=== PATIENT | male | born 1975 | race Caucasian/White ===

== ENCOUNTER 2023-05-01 01:07 | Emergency (ER) | payer OTHER, SELFPAY ==
[2023-05-01 01:12] VITALS: BP 183/125; PULSE 93; RESP 18; TEMP 36.6; O2SAT 94; BMI 34.7
--- NOTE | 2023-05-01 01:24 | XRR_ITS ---
PROCEDURE INFORMATION: Exam: XR Right Ankle Exam date and time: 05/01/2023 1:26 AM Age: 47 years old Clinical indication: Swelling or effusion of joint; Right; Patient HX: C/O RT ankle pain and swelling with multiple small bruises to medial side. Patient unsure as to why he has bruises. ; Additional info: Pain/swelling TECHNIQUE: Imaging protocol: Radiologic exam of the right ankle. Views: 3 or more views. COMPARISON: No relevant prior studies available. FINDINGS: Bones/joints: Normal. Soft tissues: Normal. XR/XR ankle RT min 3V* [id number] IMPRESSION: No acute findings.
--- NOTE | 2023-05-01 01:24 | XRR_ITS ---
PROCEDURE INFORMATION: Exam: XR Right Knee Exam date and time: 05/01/2023 1:26 AM Age: 47 years old Clinical indication: Right; Patient HX: Patient C/O RT knee pain with multiple small bruises to medial side. Patient states he is not sure why he is bruising. TECHNIQUE: Imaging protocol: Radiologic exam of the right knee. Views: 3 views. COMPARISON: No relevant prior studies available. FINDINGS: Bones/joints: Normal. Soft tissues: Normal. XR/XR knee RT 3V* [id number] IMPRESSION: No acute osseous findings.
--- NOTE | 2023-05-01 01:52 | USR_ITS ---
PROCEDURE INFORMATION: Exam: US Duplex Right Lower Extremity Veins, Limited Exam date and time: 05/01/2023 2:35 AM Age: 47 years old Clinical indication: Pain; Edema, localized; Lower extremity, right; Leg, lower; Additional info: Rle edema pain TECHNIQUE: Imaging protocol: Real-time duplex ultrasound of the right extremity with 2-D yeager scale, color Doppler flow and spectral waveform analysis including responses to compression and other maneuvers (when performed) with image documentation. Limited exam was focused on the right lower extremity veins. COMPARISON: CR (LOW EXM, ) 05/01/2023 1:26 AM FINDINGS: Right deep veins: Unremarkable. The common femoral, femoral, proximal profunda femoral and popliteal veins are patent without thrombus. Normal Doppler waveforms. Normal compressibility and/or augmentation response. Superficial veins: Unremarkable. Saphenofemoral junction is patent without thrombus. Soft tissues: Unremarkable. US/[place] [id number] IMPRESSION: No evidence of deep vein thrombosis.
[2023-05-01 02:13] VITALS: BP 183/125; PULSE 92; RESP 16; O2SAT 93
--- NOTE | 2023-05-01 02:16 | ED_ITS ---
HPI - Extremity Problem General: Chief complaint: Extremity Injury, Lower Stated complaint: Rt Knee Injury Time Seen by Provider: 05/01/23 01:48 History of Present Illness: 47-year-old male without significant medical history. He presents with right leg pain, mainly to the knee less so to the ankle following what he believes was an injury a couple of weeks ago. He was sitting and stood up and heard a pop. He has had some pain on and off to the knee since that time. This evening he noticed more swelling to his leg into his ankle. He complains of knee and ankle swelling. There is bruising which she had not noticed before to the medial knee, and medial ankle. Associated symptoms: Deny chest pain or fever(s) Review of Systems Const: Denies: fever(s) ENMT: Denies: throat pain Card: Denies: chest pain Resp: Denies: dyspnea GI: Denies: abdominal pain or vomiting Neuro: Denies: numbness in extremities Physical Exam Const: COMMON NORMALS: no acute distress GENERAL APPEARANCE: cooperative; not ill appearing and not frail appearing HENMT: COMMON NORMALS: normocephalic, atraumatic and Normal external nose present HEAD & SCALP: normocephalic and atraumatic FACE & SINUS: normal facial exam and face symmetric NOSE: Normal external nose present Eye: COMMON NORMALS: Equal, round and reactive pupils present and EOMs intact bilaterally PUPIL: Yes Equal, round and reactive pupils present Neck/C-Spine: GENERAL: Yes trachea midline Chest: CHEST: Yes Symmetrical chest wall rise Resp: COMMON NORMALS: normal respiratory effort, No retractions, No use of accessory muscles and clear to auscultation bilaterally AUSCULTATION: clear to auscultation bilaterally Cardio: COMMON NORMALS: regular rate and regular rhythm RATE: regular rate RHYTHM: regular rhythm GI: COMMON NORMALS: Normal to inspection, nondistended, normoactive bowel sounds present Extremity: COMMON NORMALS: no pedal edema NARRATIVE EXTREMITY EXAM: Examination of the right lower extremity reveals some prepatellar swelling. There is no definite knee effusion. No popliteal tenderness. There is tenderness over the anterior lateral joint line and patella. There is 1+ edema to the right lower extremity from the knee to the ankle. There is ecchymosis present in the medial joint line of the knee. There is also ecchymosis present in the medial joint line of the ankle along the medial malleolus. There is some soft tissue swelling of the ankle without deformity. Medial malleolar tenderness is present. Homans test is negative. Neuro: BRAD COMA SCALE: document GCS findings Brad coma scale eye opening: Spontaneous [place] coma scale verbal response: Orientated Brad coma scale motor response: Obey commands [place] coma scale total score: 15 SENSORY EXAM: Yes extremities (intact) Psych: COMMON NORMALS: speech normal SPEECH: Yes normal speech Skin: COMMON NORMALS: no rashes or lesions noted GENERAL SKIN EXAM: no rashes or lesions noted Course 2 Vital Signs: Vital signs: Vital Signs Temperature 97.9 F 05/01/23 01:12 Pulse Rate 92 05/01/23 02:13 Respiratory Rate 16 05/01/23 02:13 Blood Pressure 183/125 05/01/23 02:13 Pulse Oximetry 93 05/01/23 02:13 Oxygen Delivery Me thod Room Air 05/01/23 02:13 MDM - Extremity (Nontraumatic) Medical Decision Making 47-year-old hypertensive male. He presents with right leg pain, ecchymosis, and swelling with questionable knee injury. Ankle and knee x-rays are read as negative. He does have a thickened prepatellar space on knee x-ray, and some soft tissue swelling of his ankle and ankle x-ray. Ecchymosis to the skin is present. Lower extremity Doppler is pending. He has normal pulses distally. Venous ultrasound is negative. This may be a tennis leg (rupture of the plantaris tendon) causing the swelling and bruising. No significant knee or ankle joint effusions to indicate infectious/septic arthritis. He will be placed on anti-inflammatories, told to ice and compress the leg, outpatient follow-up. Lab Data Radiology Impressions Ankle X-Ray 05/01/23 01:24 IMPRESSION: No acute findings. Knee X-Ray 05/01/23 01:24 IMPRESSION: No acute osseous findings. Venous Duplex 05/01/23 01:52 IMPRESSION: No evidence of deep vein thrombosis. All radiology interpretation(s) finalized by discharge Discharge Plan Discharge Patient Disposition: Home Clinical Impression: Right leg injury Condition: Stable Prescriptions: New ketorolac 10 mg tablet 10 mg PO TID PRN (Reason: pain) Qty: 10 0RF Discharge Orders: Discharge ED (Routine); Ordered 05/01/23 Ordered By: Agapito Owen Patient Instructions: Leg Edema (ED), Leg Sprain (ED), Leg Pain (ED), Opioid Safety, Pain Management Activity Restrictions/Additional Instructions: No definite cause of your leg swelling and pain was found by x-ray or ultrasound. You do not have a blood clot. This may be a strain of the leg, particularly of the plantaris tendon known as a tennis leg. Ice, and elevate for swelling and pain. Medication as directed for swelling and pain. We will ask our case management team to make you an appointment with orthopedics. Ret urn for worsening symptoms despite treatment. Coding Level of Care Code ED Color Straining Bag Washer for Adelina Muñoz
[2023-05-01 03:14] VITALS: BP 163/112; PULSE 88; RESP 18; O2SAT 97
--- NOTE | 2023-05-01 07:12 | DCPLANNER ---
Referral was sent to ortho clinic on 05/01/23 at 0712 am. Clinic to contact patient
== END 2023-05-01 03:17 | disposition home or self-care (01) ==
PROVIDERS: Emergency Provider Emergency Medicine
DX: S80.11XA Contusion of right lower leg, initial encounter (principal); X58.XXXA Exposure to other specified factors, initial encounter
CPT/HCPCS: 73562; 73610; 93971; 99284

== ENCOUNTER 2023-08-15 07:09 | Outpatient (CLI) | payer OTHER, SELFPAY ==
--- NOTE | 2023-08-15 | US_ITS ---
WS: [id number] RIGHT UPPER QUADRANT ULTRASOUND HISTORY: ELEVATED LFT'S COMPARISON: None available. Liver: 17.2 cm in length. Coarse echotexture throughout the liver with heterogeneity and areas of hep atic steatosis and fatty sparing. No mass. No bile duct dilatation. Portal Vein: Normal hepatopetal flow with monophasic waveform. Gallbladder: Normally distended gallbladder with no stones or wall thickening. CBD: 0.5 cm Pancreas: Normal size and echogenicity. Right kidney: 12.7 cm in length. Normal size and echogenicity. No hydronephrosis or mass. Aorta and IVC: Unremarkable abdominal aorta and IVC. No ascites. IMPRESSION: 1. Normal gallbladder. 2. Moderate hepatic steatosis and very mild hepatic enlargement. Areas of hepatic steatosis and fatt y sparing throughout the liver.
== END 2023-08-15 07:10 | disposition home or self-care (01) ==
LOC: RAD 07:10
PROVIDERS: Visit Provider Family Medicine
DX: R79.89 Other specified abnormal findings of blood chemistry (principal); R16.0 Hepatomegaly, not elsewhere classified; K76.0 Fatty (change of) liver, not elsewhere classified; Z12.11 Encounter for screening for malignant neoplasm of colon
CPT/HCPCS: 76705; 99203

== ENCOUNTER → 2025-03-13 07:54 | Outpatient (BNVA) | payer OTHER, SELFPAY | PROVIDERS: Visit Provider Nurse Practitioner Family | DX: L21.8 Other seborrheic dermatitis (principal); L08.9 Local infection of the skin and subcutaneous tissue, unspecified | CPT/HCPCS: 11104; 99203 ==

== ENCOUNTER → 2025-04-17 15:37 | Outpatient (BNVA) | payer OTHER, SELFPAY | PROVIDERS: Visit Provider Nurse Practitioner Family | DX: B35.4 Tinea corporis (principal); B35.1 Tinea unguium | CPT/HCPCS: 99213 ==

== ENCOUNTER → 2025-05-07 08:20 | Outpatient (BNVA) | payer OTHER, SELFPAY | PROVIDERS: Visit Provider Nurse Practitioner Family | DX: B35.4 Tinea corporis (principal) | CPT/HCPCS: 99213 ==